=== PATIENT | female | born 1970 | race Caucasian/White ===

== ENCOUNTER 2016-04-16 | Outpatient (CLI) | END 2016-04-16 18:42 | disposition critical access hospital (66) | CPT/HCPCS: A0425; A0429 ==

== ENCOUNTER 2016-04-16 18:57 | Emergency (ER) | payer MEDICAID ==
[2016-04-16] MEDS ORDERED: WATER FOR INJECTION,STERILE 10 ML ONE (20:02)
[2016-04-16] MEDS ORDERED: OLANZapine 10 MG VIAL IM ONE (20:02)
[2016-04-16] MEDS ORDERED: LORazepam 2 MG/ML SYRINGE ONE (20:04)
[2016-04-16] MEDS ORDERED: LORazepam 2 MG/ML SYRINGE IM STA (20:05)
[2016-04-16] MEDS ORDERED: OLANZapine 10 MG VIAL IM STA (20:05)
[2016-04-16] MEDS ORDERED: NICOTINE 21 MG PATCH TOP ONE (20:58)
[2016-04-16] MEDS ORDERED: NICOTINE 21 MG PATCH TOP STA (21:03)
== END 2016-04-17 13:20 | disposition home or self-care (01) ==
DX: F10.120 Alcohol abuse with intoxication, uncomplicated (principal); T50.902A Poisoning by unspecified drugs, medicaments and biological substances, intentional self-harm, initial encounter; I10 Essential (primary) hypertension; F17.200 Nicotine dependence, unspecified, uncomplicated
CPT/HCPCS: 36415; 80053; 80306; 80307; 80320; 80329; 81001; 81025; 83690; 83735; 85025; 96372; 99284; A9270

== ENCOUNTER 2016-04-21 | Outpatient (CLI) | END 2016-04-21 23:59 | disposition critical access hospital (66) | CPT/HCPCS: A0425; A0429 ==

== ENCOUNTER 2016-04-22 00:16 | Emergency (ER) | payer MEDICAID | END 2016-04-22 05:53 | disposition home or self-care (01) | DX: S22.41XA Multiple fractures of ribs, right side, initial encounter for closed fracture (principal); M25.512 Pain in left shoulder; V43.52XA Car driver injured in collision with other type car in traffic accident, initial encounter; F10.129 Alcohol abuse with intoxication, unspecified; Z78.1 Physical restraint status; I10 Essential (primary) hypertension; F17.200 Nicotine dependence, unspecified, uncomplicated ==

== ENCOUNTER 2016-07-31 09:54 | Outpatient (CLI) | payer MEDICAID | END 2016-07-31 09:55 | disposition home or self-care (01) | DX: M25.50 Pain in unspecified joint (principal) ==

== ENCOUNTER 2016-08-14 11:00 | Outpatient (CLI) | payer MEDICAID | END 2016-08-14 11:01 | disposition home or self-care (01) | DX: E78.1 Pure hyperglyceridemia (principal); R53.83 Other fatigue; M25.50 Pain in unspecified joint; D53.9 Nutritional anemia, unspecified ==

== ENCOUNTER 2017-04-20 08:00 | Outpatient (CLI) | payer MEDICAID ==
[2017-04-20 13:43] LABS: CHOL/HDL RATIO 4.8 (<4.4); CHOLESTEROL 187 mg/dL; HDL CHOLESTEROL 39 mg/dL; LDL CHOLESTEROL,CALCULATED 136 mg/dL; LDL/HDL RATIO 3.5 (<4.4); VLDL CHOLESTEROL 12 mg/dL
== END 2017-04-20 08:01 | disposition home or self-care (01) ==
LOC: LAB.N 08:00
PROVIDERS: ATTEND Nurse Practitioner Gerontology
DX: R89.9 Unspecified abnormal finding in specimens from other organs, systems and tissues (principal)
CPT/HCPCS: 36415; 80061

== ENCOUNTER 2018-03-04 10:23 | Outpatient (CLI) | payer MEDICAID ==
--- NOTE | 2018-03-04 12:23 | XRAY Report ---
Reason: NECK PAIN Procedure Date: 03/04/2018 Accession Number: [id number] / [id number] Procedure: XRN - Cervical Spine 2 View CPT Code: FULL RESULT: EXAM: CERVICAL SPINE RADIOGRAPHY EXAM DATE: 03/04/2018 11:01 AM. CLINICAL HISTORY: Neck pain. COMPARISONS: None. TECHNIQUE: 3 views. FINDINGS: Alignment: Normal. No spondylolisthesis or scoliosis. Bones: The cervical vertebral bodies and posterior elements are well visualized from the skull base through C7-T1. No fractures or bone lesions. Disks: There is narrowing of disk space heights most pronounced at C5 through C7 with marginal osteophytosis. Facets: There is mild multilevel degenerative disease of the facet joints. Soft Tissues: Normal. No prevertebral soft tissue swelling. The visualized lung apices are clear. IMPRESSION: Degenerative changes as described. RADIA
== END 2018-03-04 10:24 | disposition home or self-care (01) ==
LOC: DI.N 10:23
PROVIDERS: ATTEND Nurse Practitioner Gerontology
DX: M50.30 Other cervical disc degeneration, unspecified cervical region (principal)
CPT/HCPCS: 72040

== ENCOUNTER 2018-04-23 10:41 | Outpatient (CLI) | payer MEDICAID ==
[2018-04-23 18:58] LABS: BASOPHILS % (AUTO) 0.7 %; EOSINOPHILS # (AUTO) 0.2 10^3/uL (0.0-0.7); EOSINOPHILS % (AUTO) 4.1 %; HGB - HEMOGLOBIN 14.5 g/dL (12.0-16.0); LYMPHOCYTES # (AUTO) 2.2 10^3/uL (1.5-3.5); LYMPHOCYTES % (AUTO) 42.5 %; MEAN CORPUSCULAR HEMOGLOBIN 31.4 pg (27.0-31.0); MEAN CORPUSCULAR HGB CONC 33.7 g/dL (32.0-36.0); MEAN CORPUSCULAR VOLUME 93.1 fL (81.0-99.0); MEAN PLATELET VOLUME 9.7 fL (7.9-10.8); MONOCYTES # (AUTO) 0.2 10^3/uL (0.0-1.0); MONOCYTES % (AUTO) 4.5 %; NEUTROPHILS # (AUTO) 2.5 10^3/uL (1.5-6.6); NEUTROPHILS % (AUTO) 48.2 %; PLT - PLATELET COUNT 171 10^3/uL (130-450); RED BLOOD COUNT 4.61 10^6/uL (4.20-5.40); RED CELL DISTRIBUTION WIDTH 13.6 % (12.0-15.0); WHITE BLOOD COUNT 5.2 x10^3/uL (4.8-10.8)
[2018-04-23 19:08] LABS: ALBUMIN 4.7 g/dL (3.2-5.5); ALBUMIN/GLOBULIN RATIO 1.8 (1.0-2.2); ALKALINE PHOSPHATASE 49 IU/L (42-121); ALT ALANINE AMINOTRANSFERASE 12 IU/L (10-60); AST ASPARTATE AMINOTRANSFERASE 16 IU/L (10-42); BILIRUBIN,TOTAL 1.2 mg/dL (0.2-1.0); BUN - BLOOD UREA NITROGEN 10 mg/dL (6-20); CHOL/HDL RATIO 4.1 (<4.4); CHOLESTEROL 203 mg/dL; CREATININE 0.6 mg/dL (0.4-1.0); GFR - MDRD 106 (>89); HDL CHOLESTEROL 50 mg/dL; LDL CHOLESTEROL,CALCULATED 144 mg/dL; LDL/HDL RATIO 2.9 (<4.4); TOTAL PROTEIN 7.3 g/dL (6.7-8.2); VLDL CHOLESTEROL 9 mg/dL
[2018-04-23 19:10] LABS: PLATELET ESTIMATE, MANUAL NORMAL (130-450,000) (NORMAL); PLATELET MORPHOLOGY NORMAL APPEARANCE (NORMAL); RBC MORPHOLOGY (MULTIPLE) NORMAL APPEARANCE (NORMAL)
[2018-04-23 20:56] LABS: CARBON DIOXIDE - CO2 28 mmol/L (21-32); CHLORIDE 108 mmol/L (101-111); GLUCOSE 89 mg/dL (70-100); SODIUM 144 mmol/L (135-145)
== END 2018-04-23 23:59 | disposition home or self-care (01) ==
LOC: LAB.N 10:41
PROVIDERS: ATTEND Nurse Practitioner Gerontology
DX: Z13.9 Encounter for screening, unspecified (principal); R45.86 Emotional lability
CPT/HCPCS: 36415; 80053; 80061; 82670; 83721; 84443; 85025

== ENCOUNTER 2018-07-12 16:01 | Emergency (ER) | payer MEDICAID ==
[2018-07-12 16:09] VITALS: BP 134/89
[2018-07-12] MEDS ORDERED: DEXAMETHASONE 10 MG/ML VIAL PO STA (16:38)
[2018-07-12] MEDS ORDERED: KETOROLAC 60 MG/2 ML VIAL IM STA (16:38)
[2018-07-12] MEDS ORDERED: oxyCODONE 5 MG TABLET PO STA (16:38)
[2018-07-12] MEDS ORDERED: CYCLOBENZAPRINE 10 MG TABLET PO STA (16:38)
--- NOTE | 2018-07-12 16:42 | ED Physician Documentation ---
PD HPI BACK INJURY - Stated complaint Stated Complaint: BACK PX - History obtained from History obtained from: Patient - History of Present Illness Location: Right Type of injury: Other (stepped hard off a curb) Where injury occurred: Street Timing - onset: Yesterday Timing - details: Gradual onset Pain level max: 8 Pain level now: 5 Quality: Pain, Spasm, Similar to prior episodes Improved by: Rest Worsened by: Moving Associated symptoms: No: Fever, Weakness, Numbness, Incontinent of urine, Unable to urinate, Hematuria, Incontinent of stool Contributing factors: No: Anticoagulated, Prior back surgery Recently seen: Not recently seen Review of Systems Constitutional: denies: Fever, Chills GI: denies: Abdominal Pain, Vomiting, Diarrhea : denies: Dysuria, Unable to Void Skin: denies: Rash Musculoskeletal: denies: Neck pain Neurologic: denies: Focal weakness, Numbness PD PAST MEDICAL HISTORY - Past Medical History Cardiovascular: Hypertension, High cholesterol Respiratory: Asthma Endocrine/Autoimmune: None GI: GI bleed, Ulcers HAUNTED HISTORY TOUR GUIDE: None : None HEENT: Chronic vision loss Psych: None Musculoskeletal: None Derm: None - Past Surgical History Past Surgical History: Yes General: Appendectomy Ortho: Carpal Tunnel surgery /HAUNTED HISTORY TOUR GUIDE: Breast implants HEENT: Other - Present Medications Home Medications: Ambulatory Orders Medication Instructions Recorded Confirmed Losartan [Cozaar] 50 mg ORAL DAILY 07/31/15 02/27/16 Lovastatin [Altoprev] 20 mg ORAL DAILY 07/31/15 02/27/16 Beclomethasone Dipropionate [Qvar] 1 puffs INH DAILY 11/13/15 02/27/16 Isoniazid 300 mg PO DAILY 11/13/15 02/27/16 Sucralfate 1 gm PO DAILY 11/13/15 02/27/16 Vitamin B Complex/Folic Acid 0.4 mg PO DAILY 11/13/15 02/27/16 [Vitamin B-50 Complex Tablet] Promethazine [Phenergan] 25 - 50 mg PO Q6H PRN #10 tab 02/28/16 raNITIdine [Zantac] 150 mg PO DAILY #20 tablet 02/28/16 Hydrocodone/Acetaminophen 1 - 2 each PO Q6H PRN #14 tablet 04/22/16 [Hydrocodon-Acetaminophen 5-325] Cyclobenzaprine [Flexeril] 10 mg PO TID PRN #20 tablet 07/12/18 Meloxicam [Mobic] 15 mg PO DAILY PRN #20 tablet 07/12/18 Oxycodone HCl/Acetaminophen 1 - 2 each PO Q6H PRN #14 tablet 07/12/18 [Percocet 5-325 mg Tablet] - Allergies Allergies/Adverse Reactions: Allergies Allergy/AdvReac Type Severity Reaction Status Date / Time No Known Drug Allergies Allergy Verified 07/12/18 16:09 - Social History Does the pt smoke?: Yes Smoking Status: Current every day smoker Does the pt drink ETOH?: Yes Does the pt have substance abuse?: No - Immunizations Immunizations are current?: Yes - POLST Patient has POLST: No PD ED PE NORMAL - Vitals Vital signs reviewed: Yes - General General: Alert and oriented X 3, No acute distress - HEENT HEENT: Moist mucous membranes - Neck Neck: Supple, no meningeal sign - Cardiac Cardiac: RRR, Strong equal pulses - Respiratory Respiratory: No respiratory distress, Clear bilaterally - Abdomen Abdomen: Soft, Non tender, Non distended - Back Back: No spinal TTP (No midline tenderness to palpation or percussion. Paraspinal spasm right greater than left.) - Derm Derm: Warm and dry - Extremities Extremities: Other (Normal bilateral lower extremity patellar and ankle jerk reflexes. Normal great toe extension bilaterally. no saddle anesthesia) - Neuro Neuro: Alert and oriented X 3, No motor deficit, No sensory deficit - Psych Psych: Normal mood, Normal affect Results - Vitals Vitals: Vital Signs - 24 hr 07/12/18 16:08 Temperature 37.1 C Heart Rate 80 Respiratory 20 Rate Blood Pressure 134/89 H O2 Saturation 99 Oxygen O2 Source Room air PD MEDICAL DECISION MAKING - ED course Complexity details: reviewed results, re-evaluated patient, considered differential (No cauda equina, no spinal epidural abscess, no fracture, no aortic dissection or evidence of aneursym rupture), d/w patient ED course: 48-year-old female presents to the emergency department with paraspinal muscle spasm, right greater than left. She is well-appearing, nontoxic. No evidence of cauda equina, epidural abscess, fracture. Patient counseled regarding signs and symptoms for which I believe and urgent re-evaluation would be necessary. Patient with good understanding of and agreement to plan and is comfortable going home at this time This document was made in part using voice recognition software. While efforts are made to proofread this document, sound alike and grammatical errors may occur. Departure - Departure Disposition: 01 Home, Self Care Clinical Impression: Back muscle spasm Back pain Qualifiers: Back pain location: low back pain Chronicity: acute Back pain laterality: right Sciatica presence: without sciatica Qualified Code(s): M54.5 - Low back pain Condition: Good Instructions: ED Low Back Pain Injury Follow-Up: Mirna Dave ARNP [Primary Care Provider] - Within 1 week Prescriptions: Cyclobenzaprine [Flexeril] 10 mg PO TID PRN #20 tablet PRN Reason: Spasms Meloxicam [Mobic] 15 mg PO DAILY PRN #20 tablet PRN Reason: pain Oxycodone HCl/Acetaminophen [Percocet 5-325 mg Tablet] 1 - 2 each PO Q6H PRN #14 tablet PRN Reason: pain Comments: Use the medications as prescribed. Return if you worsen. Follow-up with your doctor for further care. There is no evidence of fracture on clinical exam. You may have a slipped disc. Do not drink alcohol or drive while on narcotic pain medicine. Note that many narcotic pain relievers also contain tylenol/acetaminophen. Please ensure that your total dose of acetaminophen from all sources does not exceed 3 grams (3000mg) per day. You may constipated on this medication, take a stool softener such as "Colace" twice a day while you are on it. Also recommend a [id number] laxative such as senna or MiraLAX any day that you do not have a bowel movement. If you received narcotic pain medication in the emergency department, do not drive or operate machinery for the next 24 hours. Discharge Date/Time: 07/12/18 17:14
[2018-07-12] MEDS ORDERED: CHERRY SYRUP 10 ML UDC PO ONE (16:51)
== END 2018-07-12 17:14 | disposition home or self-care (01) ==
LOC: ED 16:01
DX: M62.830 Muscle spasm of back (principal); M54.5 Low back pain; I10 Essential (primary) hypertension; F17.200 Nicotine dependence, unspecified, uncomplicated
CPT/HCPCS: 96372; 99283; A9270

== ENCOUNTER 2019-05-28 16:49 | Emergency (ER) | payer MEDICAID ==
[2019-05-28] MEDS ORDERED: DEXAMETHASONE 10 MG/ML VIAL PO STA (17:33)
[2019-05-28] MEDS ORDERED: CHERRY SYRUP 10 ML UDC PO ONE (17:33)
[2019-05-28] MEDS ORDERED: KETOROLAC 60 MG/2 ML VIAL IM STA (17:33)
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
--- NOTE | 2019-05-28 18:37 | CT Report ---
Reason: traumatic brain injury Procedure Date: 05/28/2019 Accession Number: [id number] / [id number] Procedure: CT - HEAD WO CPT Code: Final Report FULL RESULT: EXAM: CT HEAD EXAM DATE: 05/28/2019 06:11 PM. CLINICAL HISTORY: Headaches for 5 days. COMPARISON: HEAD W/O 04/22/2016 12:53 AM. TECHNIQUE: Multiaxial CT images were obtained from the foramen magnum to the vertex. Reformats: Sagittal and coronal. IV contrast: None. In accordance with CT protocol optimization, one or more of the following dose reduction techniques were utilized for this exam: automated exposure control, adjustment of mA and/or KV based on patient size, or use of iterative reconstructive technique. FINDINGS: Parenchyma: No mass-effect or midline shift. No evidence for edema. No evidence for acute intracranial hemorrhage. Extraaxial Spaces: Normal for age. No subdural or epidural collections identified. Ventricles: Normal in size and position. Sinuses and Orbits: Minimal ethmoid sinus mucosal thickening. No acute findings. Bones: No evidence of fracture or calvarial defect. IMPRESSION: No acute or focal intracranial abnormality seen. RADIA
[2019-05-28 18:48] VITALS: BP 126/72
== END 2019-05-28 18:49 | disposition home or self-care (01) ==
LOC: ED 16:49
DX: M54.81 Occipital neuralgia (principal); M62.838 Other muscle spasm; M54.2 Cervicalgia; R11.0 Nausea; I10 Essential (primary) hypertension; F17.200 Nicotine dependence, unspecified, uncomplicated
CPT/HCPCS: 70450; 96372; 99284; A9270

== ENCOUNTER 2020-01-17 14:48 | Outpatient (CLI) | payer MEDICAID ==
--- NOTE | 2020-01-19 10:58 | MRI Report ---
PROCEDURE: Cervical Spine W/O INDICATIONS: CERVICAL RADICULOPATHY TECHNIQUE: Noncontrast sagittal T1 spin echo and T2 fast spin echo, sagittal STIR, foraminal oblique sagittal T2 fast spin echo, and axial gradient echo or T2 fast spin echo through the cervical spine. COMPARISON: Correlation is made with prior cervical spine radiographs 12/19/2019 and 03/04/2018. Gauri elation is also made with prior cervical spine CT examination, 02/20/2016. No prior cervical spine MR I studies are available for review at the time of this dictation. FINDINGS: Image quality: Motion artifact is noted. Alignment and Curvature: There is overall straightening of the normal cervical lordosis. Minimal ret rolisthesis is seen at C5-C6 and C6-C7. Bone Marrow: Marrow demonstrates normal overall signal. Spinal Cord: Visualized spinal cord has normal size and signal. No cerebellar tonsillar herniation. Paraspinous Soft Tissues: No paravertebral masses. Prevertebral soft tissues are normal in thicknes s. C2-C3: The disc height is well-preserved. There is loss of disc signal seen. Mild disc osteophyte complex is seen. Mild facet hypertrophy is seen. There is minimal left-sided and no right-sided n euroforaminal narrowing seen. Minimal central canal narrowing is seen. C3-C4: Moderate loss of disc height and signal are seen. Moderate disc osteophyte complex is s een. There is moderate to prominent right-sided and moderate left-sided facet hypertrophy seen. Ther e is moderate to severe bilateral neuroforaminal narrowing seen, right worse than left. Moderate kelsey tral canal narrowing is seen. C4-C5: Mild loss of disc height and disc signal are seen. Mild to moderate disc osteophyte complex i s seen. There is prominent right-sided and mild left-sided facet hypertrophy seen at this level. Ther e is at least moderate bilateral neuroforaminal narrowing seen. Mild central canal narrowing is seen . Associated mass effect is seen upon the ventral spinal cord. C5-C6: Moderate loss of disc height and signal are seen. Moderate disc osteophyte complex is seen. There is a central/left disc osteophyte protrusion seen, as on series 701 image 20. Mild to moderate facet hypertrophy is seen at this level. There is moderate right-sided and moderate to severe left-s ided neuroforaminal narrowing seen. Moderate central canal narrowing is seen. Associated mass ef fect is seen upon the ventral spinal cord. C6-C7: At least moderate loss of disc height and disc signal can be seen. Moderate disc osteophyte complex is seen. There is a mild to moderate central disc protrusion seen. There is mild right-side d and moderate left-sided facet hypertrophy seen. There is at least moderate bilateral neuroforaminal narrowing seen. Mild to moderate central canal narrowing is seen at this level. C7-T1: Mild loss of disc height and disc signal are seen. No significant disc osteophyte complex is seen. No significant neural foraminal or central canal narrowing can be seen. IMPRESSION: Multiple levels of cervical spine degenerative change are seen, which are overall most prominent at t he C5-C6 level. Reviewed by: Mason Nayak MD on 01/19/2020 9:57 AM [facility] Approved by: Mason Nayak MD on 01/19/2020 9:57 AM CATARINO Station ID: [id number]
== END 2020-01-17 14:49 | disposition home or self-care (01) ==
LOC: DI 14:48
PROVIDERS: ATTEND Family Medicine
DX: M47.22 Other spondylosis with radiculopathy, cervical region (principal); M50.122 Cervical disc disorder at C5-C6 level with radiculopathy; M25.78 Osteophyte, vertebrae
CPT/HCPCS: 72141

== ENCOUNTER 2020-02-16 16:17 | Outpatient (CLI) | payer MEDICAID | END 2020-02-16 23:59 | disposition home or self-care (01) | LOC: LAB.R 16:17 | PROVIDERS: ATTEND Internal Medicine | DX: R53.83 Other fatigue (principal); Z20.828 Contact with and (suspected) exposure to other viral communicable diseases | CPT/HCPCS: 87275; 87276 ==

== ENCOUNTER 2020-04-12 08:50 | Emergency (ER) | payer MEDICAID ==
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
[2020-04-12] MEDS ORDERED: CHERRY SYRUP 10 ML UDC PO ONE (09:35)
[2020-04-12] MEDS ORDERED: KETOROLAC 60 MG/2 ML VIAL IM STA (09:35)
[2020-04-12] MEDS ORDERED: DEXAMETHASONE 10 MG/ML VIAL PO STA (09:35)
[2020-04-12 10:11] VITALS: BP 124/91
== END 2020-04-12 10:16 | disposition home or self-care (01) ==
LOC: ED 08:50
DX: M54.12 Radiculopathy, cervical region (principal); F17.200 Nicotine dependence, unspecified, uncomplicated
CPT/HCPCS: 96372; 99283; 99284; A9270

== ENCOUNTER 2020-08-20 08:00 | Outpatient (CLI) | payer MEDICAID ==
[2020-08-20 18:10] LABS: CREATININE 0.8 mg/dL (0.4-1.0)
== END 2020-08-20 23:59 | disposition home or self-care (01) ==
LOC: LAB.WCP 08:00
PROVIDERS: ATTEND Family Medicine
DX: F10.21 Alcohol dependence, in remission (principal)
CPT/HCPCS: 36415; 82565

== ENCOUNTER 2020-08-24 08:15 | Outpatient (CLI) | payer MEDICAID ==
[2020-08-24] MEDS ORDERED: IOPAMIDOL-300 50 ML VIAL ONE (08:20)
[2020-08-24] MEDS ORDERED: IOPAMIDOL-300 100 ML VIAL ONE (08:20)
[2020-08-24] MEDS ORDERED: IOPAMIDOL-300 50 ML VIAL PO ONE (10:54)
[2020-08-24] MEDS ORDERED: IOPAMIDOL-300 100 ML VIAL IVP ONE (10:55)
--- NOTE | 2020-08-24 15:22 | CT Report ---
PROCEDURE: Abdomen/Pelvis W INDICATIONS: LT INGUINAL HERNIA CONTRAST: IV CONTRAST: Isovue 300 ml: 100 PO CONTRAST: Isovue 300 ml50 TECHNIQUE: After the administration of nonionic contrast, 5 mm thick sections acquired from the diaphragms to th e symphysis. 5 mm thick coronal and sagittal reformats were acquired. For radiation dose reduction, the following was used: automated exposure control, adjustment of mA and/or kV according to patient size. COMPARISON: 04/13/2015 abdomen/pelvis CT.. FINDINGS: Image quality: Excellent. ABDOMEN: Lung bases: Lung bases are clear. Heart size is normal. Solid organs: Liver and spleen are normal in size and enhancement. Gallbladder appears normal Bili ginger system is non dilated. Pancreas enhances normally. No adrenal nodules. Kidneys demonstrate nor mal size and enhancement, without hydronephrosis. Peritoneum and bowel: Bowel loops demonstrate normal wall thickness and caliber. No free fluid or a ir. Nodes and vessels: No retroperitoneal or mesenteric adenopathy by size criteria. Aorta and inferior vena cava are normal in size. Miscellaneous: No ventral hernias. PELVIS: Genitourinary: Bladder wall thickness is normal. Miscellaneous: No inguinal hernias or adenopathy. Small bowel containing a normal amount of oral co ntrast has clustered near the internal os of the left inguinal canal, but a adriana herniation in that area is not found. Bones: No suspicious bony lesions. No vertebral body compression fractures. IMPRESSION: Clustered small bowel loops containing a normal amount of oral contrast are seen near th e internal os of the left inguinal canal, without a true herniation inferiorly within the canal at ti me of CT scanning. Reviewed by: Samy Noriega MD on 08/24/2020 3:21 PM PDT Approved by: Samy Noriega MD on 08/24/2020 3:21 PM PDT Station ID: [id number]
== END 2020-08-24 08:16 | disposition home or self-care (01) ==
LOC: DI 08:15
PROVIDERS: ATTEND Physician Assistant Medical
DX: R93.5 Abnormal findings on diagnostic imaging of other abdominal regions, including retroperitoneum (principal)
CPT/HCPCS: 74177; Q9967

== ENCOUNTER 2020-08-27 15:36 | Outpatient (CLI) | payer MEDICAID | END 2020-08-27 15:37 | disposition home or self-care (01) | LOC: COV 15:36 | PROVIDERS: ATTEND Surgery | DX: Z01.812 Encounter for preprocedural laboratory examination (principal); K40.90 Unilateral inguinal hernia, without obstruction or gangrene, not specified as recurrent; Z20.822 Contact with and (suspected) exposure to COVID-19 ==

== ENCOUNTER 2021-01-10 09:22 | Outpatient (CLI) | payer MEDICAID ==
[2021-01-10 11:57] LABS: BASOPHILS # (AUTO) 0.1 10^3/uL (0.0-0.1); BASOPHILS % (AUTO) 0.9 %; EOSINOPHILS # (AUTO) 0.2 10^3/uL (0.0-0.7); EOSINOPHILS % (AUTO) 3.9 %; HCT - HEMATOCRIT 41.9 % (37.0-47.0); HGB - HEMOGLOBIN 13.9 g/dL (12.0-16.0); LYMPHOCYTES # (AUTO) 2.3 10^3/uL (1.5-3.5); LYMPHOCYTES % (AUTO) 40.1 %; MEAN CORPUSCULAR HEMOGLOBIN 31.7 pg (27.0-31.0); MEAN CORPUSCULAR HGB CONC 33.2 g/dL (32.0-36.0); MEAN CORPUSCULAR VOLUME 95.4 fL (81.0-99.0); MEAN PLATELET VOLUME 11.3 fL (7.9-10.8); MONOCYTES # (AUTO) 0.4 10^3/uL (0.0-1.0); MONOCYTES % (AUTO) 6.3 %; NEUTROPHILS # (AUTO) 2.8 10^3/uL (1.5-6.6); NEUTROPHILS % (AUTO) 48.6 %; PLT - PLATELET COUNT 185 10^3/uL (130-450); RED BLOOD COUNT 4.39 10^6/uL (4.20-5.40); RED CELL DISTRIBUTION WIDTH 13.4 % (12.0-15.0); WHITE BLOOD COUNT 5.7 x10^3/uL (4.8-10.8)
[2021-01-10 12:07] LABS: BILIRUBIN,URINE NEGATIVE (NEGATIVE); GLUCOSE, URINE (UA) NEGATIVE (NEGATIVE); KETONES,URINE (UA) NEGATIVE (NEGATIVE); LEUKOCYTE ESTERASE, URINE NEGATIVE (NEGATIVE); NITRITE,URINE NEGATIVE (NEGATIVE); OCCULT BLOOD,URINE NEGATIVE (NEGATIVE); PH,URINE 7.5 PH (5.0-7.5); PROTEIN,URINE NEGATIVE (NEGATIVE); UROBILINOGEN,URINE 0.2 (NORMAL) E.U./dL (NORMAL)
[2021-01-10 12:11] LABS: CLARITY,URINE CLEAR (CLEAR)
[2021-01-10 12:14] LABS: RBC,URINE 0-5 /HPF (0-5); WBC,URINE 0-3 /HPF (0-5)
[2021-01-10 12:15] LABS: BACTERIA,URINE None Seen /HPF (None Seen); MUCUS,URINE Few Strands; SQUAMOUS EPITHELIAL CELL,UR RARE Squamous (<= Few)
[2021-01-10 12:30] LABS: THYROID STIMULATING HORMONE 0.89 uIU/mL (0.34-5.60)
[2021-01-10 13:22] LABS: ALBUMIN 4.5 g/dL (3.2-5.5); ALBUMIN/GLOBULIN RATIO 1.6 (1.0-2.2); ALKALINE PHOSPHATASE 50 IU/L (42-121); ALT ALANINE AMINOTRANSFERASE 25 IU/L (10-60); AST ASPARTATE AMINOTRANSFERASE 27 IU/L (10-42); BILIRUBIN,TOTAL 0.7 mg/dL (0.2-1.0); BUN - BLOOD UREA NITROGEN 8 mg/dL (6-20); CALCIUM 9.5 mg/dL (8.5-10.3); CARBON DIOXIDE - CO2 28 mmol/L (21-32); CHLORIDE 106 mmol/L (101-111); CHOLESTEROL 227 mg/dL; CREATININE 0.8 mg/dL (0.4-1.0); GFR - MDRD 76 (>89); GLUCOSE 98 mg/dL (70-100); HDL CHOLESTEROL 57 mg/dL; LDL CHOLESTEROL,CALCULATED 158 mg/dL; LDL/HDL RATIO 2.8 (<4.4); POTASSIUM 4.9 mmol/L (3.5-5.0); SODIUM 143 mmol/L (135-145); TOTAL PROTEIN 7.3 g/dL (6.7-8.2); TRIGLYCERIDES 60 mg/dL; VLDL CHOLESTEROL 12 mg/dL
== END 2021-01-10 23:59 | disposition home or self-care (01) ==
LOC: LAB.WCP 09:22
PROVIDERS: ATTEND Nurse Practitioner
DX: R53.83 Other fatigue (principal); R53.81 Other malaise; F41.9 Anxiety disorder, unspecified; Z13.220 Encounter for screening for lipoid disorders; D53.9 Nutritional anemia, unspecified
CPT/HCPCS: 36415; 80053; 80061; 81001; 82607; 83721; 84443; 85025; 87086

== ENCOUNTER 2021-02-16 13:22 | Emergency (ER) | payer OTHER, MEDICAID ==
[2021-02-16 13:38] VITALS: BP 111/66
[2021-02-16] MEDS ORDERED: KETOROLAC 60 MG/2 ML VIAL IM STA (15:47)
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
== END 2021-02-16 16:25 | disposition home or self-care (01) ==
LOC: ED 13:22
DX: S16.1XXA Strain of muscle, fascia and tendon at neck level, initial encounter (principal); M54.6 Pain in thoracic spine; V53.6XXA Passenger in pick-up truck or van injured in collision with car, pick-up truck or van in traffic accident, initial encounter; Y92.410 Unspecified street and highway as the place of occurrence of the external cause; I10 Essential (primary) hypertension; F17.200 Nicotine dependence, unspecified, uncomplicated
CPT/HCPCS: 96372; 99282; 99283

== ENCOUNTER 2021-03-31 07:57 | Outpatient (CLI) | payer MEDICAID ==
--- NOTE | 2021-04-01 08:18 | Mammography Report ---
BILATERAL DIGITAL SCREENING MAMMOGRAM 3D/2D WITH AUGMENTATION: 03/31/2021 CLINICAL: Routine screening. Comparison is made to exams dated: 05/20/2014 mammogram, 05/07/2012 mammogram, and 09/05/2010 mammogram - [facility]. There are scattered fibroglandular elements in both breasts. Bilateral saline implants are stable and intact. There is an oval asymmetry in the left breast anterior depth superior region seen on the mediolateral oblique view only. There also is an asymmetry with a circumscribed margin in the left breast anterior depth central to t he nipple seen on the mediolateral oblique view only. Additionally, there is a round asymmetry in the left breast anterior depth inferior region seen on th e mediolateral oblique view only. No other significant masses, calcifications, or other findings are seen in either breast. IMPRESSION: INCOMPLETE: NEEDS ADDITIONAL IMAGING EVALUATION Three oval and round asymmetries in the left breast are present. Additional views with possible ult rasound are recommended. This exam was interpreted at Station ID: [id number]. NOTE: For mammograms, a report in lay terms will be sent to the patient. Approximately 15% of breast malignancies will not be visualized mammographically. In the management of a palpable breast mass, a negative mammogram must not discourage biopsy of a clinically suspicious lesion. Electronically Signed By: Sasha shirley/:03/31/2021 11:56:19 ACR BI-RADS Category 0: Incomplete 3340F PARENCHYMAL PATTERN: (A) - The breast(s) demonstrate(s) scattered fibroglandular densities. BI-RADS CATEGORY: (0) - 0 Mammo and US [id number] Immediate follow-up LATERALITY: (B)
== END 2021-03-31 07:58 | disposition home or self-care (01) ==
LOC: DI.N 07:57
PROVIDERS: ATTEND Nurse Practitioner
DX: Z12.31 Encounter for screening mammogram for malignant neoplasm of breast (principal); R92.8 Other abnormal and inconclusive findings on diagnostic imaging of breast

== ENCOUNTER 2021-04-25 08:42 | Outpatient (CLI) | payer MEDICAID ==
--- NOTE | 2021-04-26 17:26 | Mammography Report ---
UNILATERAL LEFT DIGITAL DIAGNOSTIC MAMMOGRAM 3D/2D: 04/25/2021 CLINICAL: Patient returns today to evaluate an asymmetry in the left breast. Comparison is made to exams dated: 03/31/2021 mammogram and 05/20/2014 mammogram - [facility]. There are scattered fibroglandular elements in left breast. Left saline implant is intact. There is an oval asymmetry in the left breast anterior depth superior region seen on the mediolateral oblique view only. There also is an asymmetry with a circumscribed margin in the left breast anterior depth central to t he nipple seen on the mediolateral oblique view only. Additionally, there is a round asymmetry in the left breast anterior depth inferior region seen on th e mediolateral oblique view only. No other significant masses or calcifications are seen in the breast. IMPRESSION: INCOMPLETE: NEEDS ADDITIONAL IMAGING EVALUATION Three asymmetries in the left retroareolar breast are seen on additional views. These may represent a cluster of cyst or adjacent cysts. A targeted ultrasound is recommended and will immediately follow. This exam was interpreted at Station ID: [id number]. NOTE: For mammograms, a report in lay terms will be sent to the patient. Approximately 15% of breast malignancies will not be visualized mammographically. In the management of a palpable breast mass, a negative mammogram must not discourage biopsy of a clinically suspicious lesion. Electronically Signed By: Rai Gardner M.D. slc/:04/25/2021 09:45:08 ACR BI-RADS Category 0: Incomplete 3340F PARENCHYMAL PATTERN: (A) - The breast(s) demonstrate(s) scattered fibroglandular densities. BI-RADS CATEGORY: (0) - 0 Ultrasound [id number] Immediate follow-up LATERALITY: (B)
--- NOTE | 2021-04-26 17:27 | Ultrasound Report ---
LIMITED ULTRASOUND OF LEFT BREAST: 04/25/2021 CLINICAL: Patient returns today to evaluate a focal asymmetries in the left breast. Comparison is made to exams dated: 04/25/2021 mammogram, 03/31/2021 mammogram, and 05/20/2014 mammogram - [facility]. Color flow and real-time ultrasound of the left breast retroareolar were performed. Steen scale image s of the real-time examination were reviewed. There is a benign 0.4 cm x 0.4 cm x 0.2 cm simple cyst in the left breast at 12 o'clock anterior dept h. This simple cyst is anechoic. This correlates with mammography findings. Color flow imaging dem onstrates that there is no vascularity present. There also is a benign 0.8 cm x 0.7 cm x 0.4 cm oval cyst in the left breast central to the nipple an terior depth. This oval cyst is anechoic. This correlates with mammography findings. Color flow im aging demonstrates that there is no vascularity present. Additionally, there is a benign 0.6 cm x 0.6 cm x 0.3 cm oval normal lymph node in the left breast at 6 o'clock anterior depth. This oval normal lymph node displays fatty hilum. This correlates with m ammography findings. Color flow imaging demonstrates that there is no vascularity present. IMPRESSION: BENIGN There is no sonographic evidence of malignancy. Two small benign cysts and a small benign intramammary lymph node corresponding to the mammographic f indings. A 1 year screening mammogram is recommended. Exam findings were conveyed to the patient. This exam was interpreted at Station ID: [id number]. Electronically Signed By: Rai Gardner M.D. slc/:04/25/2021 09:53:52 Ultrasound BI-RADS: 2 Benign BI-RADS CATEGORY: (2) - 2 RECOMMENDATION: (ANNUAL) - Recommend routine annual screening mammography. [id number] 1 year screening LATERALITY: (B)
== END 2021-04-25 08:43 | disposition home or self-care (01) ==
LOC: DI 08:42
PROVIDERS: ATTEND Nurse Practitioner
DX: N60.02 Solitary cyst of left breast (principal)

== ENCOUNTER 2021-07-05 07:33 | Emergency (ER) | payer MEDICAID ==
--- NOTE | 2021-07-05 08:29 | XRAY Report ---
PROCEDURE: Ankle 3 View RT INDICATIONS: Trauma TECHNIQUE: 3 views of the ankle were acquired. COMPARISON: None. FINDINGS: BONES: No acute, displaced fracture or dislocation. The ankle mortise is maintained on these nonstre ssed views. Os trigonum versus fracture of the lateral talar tubercle. SOFT TISSUES: Small to moderate tibiotalar joint effusion. Lateral soft tissue swelling. IMPRESSION: 1.Os trigonum versus fracture of the lateral talar tubercle. 2.Lateral soft tissue swelling. 3.Small to moderate tibiotalar joint effusion. Reviewed by: Rigo Huff MD on 07/05/2021 8:28 AM PDT Approved by: Rigo Huff MD on 07/05/2021 8:28 AM PDT Station ID: [id number]
--- NOTE | 2021-07-05 09:44 | ED Physician Documentation ---
PD HPI LOWER EXT INJURY - Stated complaint Stated Complaint: RT ANKLE INJ - Chief complaint Chief Complaint: Trauma Ext - History obtained from History obtained from: Patient - History of Present Illness PD HPI LOW EXT INJURY LOCATION: Right, Ankle Type of injury: Twist (inversion injury on uneven ground yesterday while walking dog.) Timing - onset: Yesterday Timing - details: Abrupt onset, Still present (hurts for walking, and especially with uneven ground, such as some plantar/dorsi flexion.) Worsened by: Moving Associated symptoms: Swelling. No: Weakness, Numbness Similar symptoms before: Has not had sx before Recently seen: Not recently seen Review of Systems Skin: denies: Abrasion (s), Laceration (s) Neurologic: denies: Focal weakness, Numbness PD PAST MEDICAL HISTORY - Past Medical History Past Medical History: Yes Cardiovascular: Hypertension, High cholesterol Respiratory: Asthma Neuro: Head injury, Headaches Endocrine/Autoimmune: None GI: GI bleed, Ulcers INSTALLATIONS INSPECTOR: None : None HEENT: Chronic vision loss Psych: Anxiety Musculoskeletal: Chronic back pain Derm: None - Past Surgical History Past Surgical History: Yes General: Appendectomy Ortho: Carpal Tunnel surgery /INSTALLATIONS INSPECTOR: Breast implants HEENT: Other - Present Medications Home Medications: Ambulatory Orders Medication Instructions Recorded Confirmed Escitalopram [Lexapro] 10 mg ORAL DAILY 02/16/21 07/05/21 Ibuprofen [Motrin] 1 tablet PO Q8H PRN #30 tablet 07/05/21 - Allergies Allergies/Adverse Reactions: Allergies Allergy/AdvReac Type Severity Reaction Status Date / Time hornet venom Allergy Anaphylaxis Verified 07/05/21 07:45 - Social History Does the pt smoke?: Yes Smoking Status: Current every day smoker Does the pt drink ETOH?: No Does the pt have substance abuse?: Yes Substance Use and Type: Marijuana - Immunizations Immunizations are current?: Yes - POLST Patient has POLST: No PD ED PE NORMAL - Vitals Vital signs reviewed: Yes - General General: Alert and oriented X 3, No acute distress, Well developed/nourished - Derm Derm: Normal color, Warm and dry - Extremities Extremities: Other (right ankle with swelling and tenderness anterolateral in area of ATFL, but also point tender posterior talar area. Pain with plantarflexion. Pain without laxity on inversion stress. ) - Neuro Neuro: Alert and oriented X 3, No motor deficit, Normal speech Results - Vitals Vitals: Oxygen O2 Source Room air - Rads (name of study) right ankle Radiology: Prelim report reviewed (possible avulsion fracture posterior talus. ), See rad report PD MEDICAL DECISION MAKING - ED course Complexity details: considered differential (clinical findings c/w likely avulsion fracture posterior talus. Otherwise strain ATFL as well. ), d/w patient Departure - Departure Disposition: 01 Home, Self Care Clinical Impression: Ankle sprain Qualifiers: Encounter type: initial encounter Involved ligament of ankle: anterior talofibular ligament Laterality: right Qualified Code(s): S93.491A - Sprain of other ligament of right ankle, initial encounter Closed avulsion fracture of right talus Qualifiers: Encounter type: initial encounter Fracture alignment: nondisplaced Qualified Code(s): S92.154A - Nondisplaced avulsion fracture (chip fracture) of right talus, initial encounter for closed fracture Condition: Stable Record reviewed to determine appropriate education?: Yes Follow-Up: China Almanza ARNP [Primary Care Provider] - Kedar Kaur MD [Provider Admit Priv/Credential] - Prescriptions: Ibuprofen [Motrin] 1 tablet PO Q8H PRN #30 tablet PRN Reason: PAIN &/OR FEVER Comments: Your x-ray shows a possible small avulsion (chip) fracture on the back part of the talus which is the top of the foot bone. The main part of the ankle bones do not show any fractures. Otherwise you likely have some sprain of the ligaments as well. Use the boot splint when up and around for the next 3 to 4 weeks likely. Crutches initially as needed for partial to no weightbearing and progress weightbearing as tolerated. Ice elevate and rest the ankle often today and tomorrow for swelling. Ibuprofen 800 mg 3 times a day with food for the next several days to week. To that add Tylenol every 4-6 hours if needed for pain. Follow-up with your primary care or orthopedics in about a week to week and a half, call for an appointment. See how well its healing at that point and see how much more active or how long to need the splint Discharge Date/Time: 07/05/21 10:12
[2021-07-05] MEDS ORDERED: ACETAMINOPHEN 325 MG TABLET PO STA (10:01)
[2021-07-05] MEDS ORDERED: IBUPROFEN 600 MG TABLET PO STA (10:01)
[2021-07-05 10:13] VITALS: BP 114/66
== END 2021-07-05 10:12 | disposition home or self-care (01) ==
LOC: ED 07:33
DX: S93.491A Sprain of other ligament of right ankle, initial encounter (principal); S92.154A Nondisplaced avulsion fracture (chip fracture) of right talus, initial encounter for closed fracture; X50.1XXA Overexertion from prolonged static or awkward postures, initial encounter; Y93.K1 Activity, walking an animal; F17.200 Nicotine dependence, unspecified, uncomplicated
CPT/HCPCS: 73610; 99283; A9270

== ENCOUNTER 2021-07-14 13:08 | Outpatient (CLI) | payer MEDICAID ==
[2021-07-14 18:13] LABS: BASOPHILS # (AUTO) 0.1 10^3/uL (0.0-0.1); BASOPHILS % (AUTO) 0.8 %; EOSINOPHILS # (AUTO) 0.2 10^3/uL (0.0-0.7); EOSINOPHILS % (AUTO) 3.7 %; HCT - HEMATOCRIT 39.7 % (37.0-47.0); HGB - HEMOGLOBIN 12.9 g/dL (12.0-16.0); LYMPHOCYTES # (AUTO) 2.1 10^3/uL (1.5-3.5); LYMPHOCYTES % (AUTO) 35.5 %; MEAN CORPUSCULAR HEMOGLOBIN 30.4 pg (27.0-31.0); MEAN CORPUSCULAR HGB CONC 32.5 g/dL (32.0-36.0); MEAN CORPUSCULAR VOLUME 93.4 fL (81.0-99.0); MEAN PLATELET VOLUME 11.7 fL (7.9-10.8); MONOCYTES # (AUTO) 0.3 10^3/uL (0.0-1.0); MONOCYTES % (AUTO) 5.6 %; NEUTROPHILS # (AUTO) 3.2 10^3/uL (1.5-6.6); NEUTROPHILS % (AUTO) 54.1 %; PLT - PLATELET COUNT 196 10^3/uL (130-450); RED BLOOD COUNT 4.25 10^6/uL (4.20-5.40); RED CELL DISTRIBUTION WIDTH 13.1 % (12.0-15.0); WHITE BLOOD COUNT 5.9 x10^3/uL (4.8-10.8)
[2021-07-14 18:47] LABS: ALBUMIN 4.5 g/dL (3.2-5.5); ALBUMIN/GLOBULIN RATIO 1.7 (1.0-2.2); ALKALINE PHOSPHATASE 44 IU/L (42-121); ALT ALANINE AMINOTRANSFERASE 17 IU/L (10-60); AST ASPARTATE AMINOTRANSFERASE 22 IU/L (10-42); BILIRUBIN,TOTAL 0.9 mg/dL (0.2-1.0); BUN - BLOOD UREA NITROGEN 9 mg/dL (6-20); CALCIUM 9.8 mg/dL (8.5-10.3); CARBON DIOXIDE - CO2 27 mmol/L (21-32); CHLORIDE 103 mmol/L (101-111); CHOL/HDL RATIO 4.4 (<4.4); CHOLESTEROL 207 mg/dL; CREATININE 0.9 mg/dL (0.4-1.0); GFR - MDRD 66 (>89); GLUCOSE 94 mg/dL (70-100); HDL CHOLESTEROL 47 mg/dL; LDL CHOLESTEROL,CALCULATED 138 mg/dL; LDL/HDL RATIO 2.9 (<4.4); SODIUM 138 mmol/L (135-145); TOTAL PROTEIN 7.1 g/dL (6.7-8.2); TRIGLYCERIDES 112 mg/dL; VLDL CHOLESTEROL 22 mg/dL
[2021-07-14 18:55] LABS: THYROID STIMULATING HORMONE 1.07 uIU/mL (0.34-5.60)
== END 2021-07-14 13:09 | disposition home or self-care (01) ==
LOC: LAB.N 13:08
PROVIDERS: ATTEND Nurse Practitioner
DX: R53.83 Other fatigue (principal); Z13.220 Encounter for screening for lipoid disorders
CPT/HCPCS: 36415; 80053; 80061; 83721; 84443; 85025

== ENCOUNTER 2021-08-08 08:45 | Outpatient (CLI) | payer MEDICAID ==
--- NOTE | 2021-08-08 14:52 | XRAY Report ---
PROCEDURE: Ankle 3 View RT INDICATIONS: TALUS FRACTURE TECHNIQUE: 3 views of the ankle were acquired. COMPARISON: 07/05/2021 FINDINGS: Bones: Unchanged appearance of posterior talus fracture. Ankle mortise is normally aligned. No suspi cious bony lesions. Soft tissues: No tibiotalar joint effusion. Achilles tendon appears normal. IMPRESSION: No significant change in appearance of the posterior talus fracture. Reviewed by: Dereck Faye MD on 08/08/2021 2:50 PM PDT Approved by: Dereck Faye MD on 08/08/2021 2:50 PM PDT Station ID: [id number]
== END 2021-08-08 23:59 | disposition home or self-care (01) ==
LOC: DI.WOS 08:45
PROVIDERS: ATTEND Physician Assistant
DX: S92.154A Nondisplaced avulsion fracture (chip fracture) of right talus, initial encounter for closed fracture (principal)

== ENCOUNTER 2021-09-13 08:00 | Outpatient (CLI) | payer MEDICAID ==
--- NOTE | 2021-09-13 17:31 | XRAY Report ---
PROCEDURE: Ankle 3 View RT INDICATIONS: ANKLE FX TECHNIQUE: 3weightbearing views of the ankle were acquired. COMPARISON: 08/08/2021 FINDINGS: Bones: No acute fractures or dislocations. Ankle mortise is normally aligned. No suspicious bony l esions. Previously seen mildly displaced posterior talus fracture appears less conspicuous and sugge st progress towards fracture healing. Degenerative changes of the dorsal talonavicular joint. Soft tissues: No tibiotalar joint effusion. Achilles tendon appears normal. IMPRESSION: Right ankle without acute fracture or dislocation. Decreased conspicuity of posterior ta selin fracture which suggest progress towards fracture healing. Reviewed by: Hermann Roque MD on 09/13/2021 5:30 PM PDT Approved by: Hermann Roque MD on 09/13/2021 5:30 PM PDT Station ID: [id number]
== END 2021-09-13 23:59 | disposition home or self-care (01) ==
LOC: DI.WOS 08:00
PROVIDERS: ATTEND Physician Assistant
DX: S92.131D Displaced fracture of posterior process of right talus, subsequent encounter for fracture with routine healing (principal)

== ENCOUNTER 2022-02-15 09:50 | Emergency (ER) | payer MEDICAID ==
[2022-02-15] MEDS ORDERED: KETOROLAC 60 MG/2 ML VIAL IM STA (11:25)
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
[2022-02-15 12:31] VITALS: BP 120/70
--- NOTE | 2022-02-15 12:40 | XRAY Report ---
PROCEDURE: Ribs w/PA Chest RT INDICATIONS: R anterolateral rib contusion TECHNIQUE: 2 views of the right ribs were acquired, along with a single view chest. COMPARISON: 04/22/2016 FINDINGS: Surgical changes and devices: None. Bones and chest wall: No fractures or dislocations. No suspicious bony lesions. Overlying soft tis sues appear unremarkable. Lungs and pleura: No pleural effusions or pneumothorax. Lungs appear clear. Mediastinum: Mediastinal contours appear normal. Heart size is normal. IMPRESSION: No gross displaced right rib fracture is seen. No acute cardiopulmonary pathology. Reviewed by: Kevin Harris MD on 02/15/2022 12:39 PM PDT Approved by: Kevin Harris MD on 02/15/2022 12:39 PM PDT Station ID: [id number]
== END 2022-02-15 12:53 | disposition home or self-care (01) ==
LOC: ED 09:50
DX: S20.211A Contusion of right front wall of thorax, initial encounter (principal); W22.8XXA Striking against or struck by other objects, initial encounter; I10 Essential (primary) hypertension; F17.200 Nicotine dependence, unspecified, uncomplicated
CPT/HCPCS: 96372; 99282; 99283

== ENCOUNTER 2022-11-07 12:58 | Outpatient (CLI) | payer MEDICAID ==
--- NOTE | 2022-11-08 11:04 | Ultrasound Report ---
LIMITED ULTRASOUND OF RIGHT BREAST: 11/07/2022 CLINICAL: Focal right breast pain. Comparison is made to exams dated: 11/07/2022 mammogram, 03/31/2021 mammogram, and 05/20/2014 mammogram - [facility]. Color flow and real-time ultrasound of the right breast retroareolar were performed. Steen scale imag es of the real-time examination were reviewed. No significant abnormalities were seen sonographically in the right breast in the region of pain. IMPRESSION: NEGATIVE There is no sonographic evidence of malignancy. A 1 year screening mammogram is recommended. Exam findings were conveyed to the patient. Patient is advised to monitor for significant change. Cli nical follow-up as needed. This exam was interpreted at Station ID: [id number]. Electronically Signed By: Rai Gardner M.D. slc/:11/07/2022 14:54:41 Ultrasound BI-RADS: 1 Negative BI-RADS CATEGORY: (1) - 1 Mammogram [id number] 1 year screening LATERALITY: (B)
--- NOTE | 2022-11-08 11:04 | Mammography Report ---
BILATERAL DIGITAL DIAGNOSTIC MAMMOGRAM 3D/2D WITH AUGMENTATION: 11/07/2022 CLINICAL: Focal right breast pain. Due for bilateral imaging. Comparison is made to exams dated: 04/25/2021 mammogram, 03/31/2021 mammogram, and 05/20/2014 mammogram - [facility]. There are scattered areas of fibroglandular density in both breasts (category b / 25%-50% glandular t issue). No significant masses, calcifications, or other findings are seen in either breast. Stable and intac t bilateral saline implants. IMPRESSION: INCOMPLETE: NEEDS ADDITIONAL IMAGING EVALUATION No mammographic evidence of malignancy. Stable and intact breast implants. A targeted ultrasound is recommended and will immediately follow. Based on the Tyrer Cuzick model (a risk assessment model) the patients lifetime risk is 5.6% and her 10 year risk is 1.5%. According to the ACR, ACS, and NCCN guidelines, an annual breast MRI exam shanthi g with mammogram is recommended if the patients lifetime risk is 20% or greater. This exam was interpreted at Station ID: [id number]. NOTE: For mammograms, a report in lay terms will be sent to the patient. Approximately 15% of breast malignancies will not be visualized mammographically. In the management of a palpable breast mass, a negative mammogram must not discourage biopsy of a clinically suspicious lesion. Electronically Signed By: Rai Gardner M.D. slc/:11/07/2022 14:31:31 ACR BI-RADS Category 0: Incomplete 3340F PARENCHYMAL PATTERN: (A) - The breast(s) demonstrate(s) scattered fibroglandular densities. BI-RADS CATEGORY: (0) - 0 Ultrasound [id number] Immediate follow-up LATERALITY: (B)
== END 2022-11-07 12:59 | disposition home or self-care (01) ==
LOC: DI 12:58
PROVIDERS: ATTEND Physician Assistant
DX: N64.4 Mastodynia (principal); Z98.82 Breast implant status

== ENCOUNTER 2023-11-13 15:16 | Outpatient (CLI) | payer MEDICAID ==
[2023-11-13 18:01] LABS: BASOPHILS # (AUTO) 0.1 10^3/uL (0.0-0.1); EOSINOPHILS # (AUTO) 0.2 10^3/uL (0.0-0.7); EOSINOPHILS % (AUTO) 2.7 %; HCT - HEMATOCRIT 40.2 % (37.0-47.0); HGB - HEMOGLOBIN 12.8 g/dL (12.0-16.0); LYMPHOCYTES # (AUTO) 2.7 10^3/uL (1.5-3.5); LYMPHOCYTES % (AUTO) 42.8 %; MEAN CORPUSCULAR HEMOGLOBIN 29.9 pg (27.0-31.0); MEAN CORPUSCULAR HGB CONC 31.8 g/dL (32.0-36.0); MEAN CORPUSCULAR VOLUME 93.9 fL (81.0-99.0); MEAN PLATELET VOLUME 11.4 fL (7.9-10.8); MONOCYTES # (AUTO) 0.4 10^3/uL (0.0-1.0); MONOCYTES % (AUTO) 5.9 %; NEUTROPHILS % (AUTO) 47.4 %; PLT - PLATELET COUNT 224 10^3/uL (130-450); RED BLOOD COUNT 4.28 10^6/uL (4.20-5.40); RED CELL DISTRIBUTION WIDTH 13.2 % (12.0-15.0); WHITE BLOOD COUNT 6.3 x10^3/uL (4.8-10.8)
[2023-11-13 18:13] LABS: BILIRUBIN,URINE NEGATIVE (NEGATIVE); GLUCOSE, URINE (UA) NEGATIVE (NEGATIVE); KETONES,URINE (UA) NEGATIVE (NEGATIVE); LEUKOCYTE ESTERASE, URINE SMALL (NEGATIVE); NITRITE,URINE NEGATIVE (NEGATIVE); OCCULT BLOOD,URINE NEGATIVE (NEGATIVE); PROTEIN,URINE NEGATIVE (NEGATIVE); UROBILINOGEN,URINE 0.2 (NORMAL) E.U./dL (NORMAL)
[2023-11-13 18:29] LABS: ALBUMIN 4.9 g/dL (3.2-5.5); CALCIUM 10.5 mg/dL (8.5-10.3); CREATININE 0.8 mg/dL (0.6-1.3); POTASSIUM 3.9 mmol/L (3.5-4.5); TOTAL PROTEIN 7.3 g/dL (6.4-8.9)
[2023-11-13 18:52] LABS: BACTERIA,URINE Rare /HPF (None Seen); CLARITY,URINE CLEAR (CLEAR); EPITHELIAL CELLS,UR RARE Renal Tubular /HPF (<= Few); RBC,URINE None Seen /HPF (0-5); SQUAMOUS EPITHELIAL CELL,UR FEW Squamous (<= Few)
== END 2023-11-13 15:17 | disposition home or self-care (01) ==
LOC: LAB.N 15:16
PROVIDERS: ATTEND Nurse Practitioner
DX: R10.13 Epigastric pain (principal)
CPT/HCPCS: 36415; 80053; 81001; 82150; 83690; 85025; 87086